=== PATIENT | male | born 1975 | race African-American/Black ===

== ENCOUNTER 2020-06-14 10:44 | Inpatient (IN) | payer OTHER ==
--- NOTE | 2020-06-14 13:42 | BHS.RME ---
Substance Use & Tx History - Substance Use History Alcohol Substance amount: 2 pints of vodka/2 of 40 ozs of beer Substance route: Oral Date of Last Use: 06/13/20 Cocaine-Crack Substance amount: 80$ Frequency of use: Daily Substance route: Smoking Date of Last Use: 06/13/20 - Last Treatment Date of last treatment: [place] Where was last treatment: Detox Physical/Psych/Mental Status - Behavior Eye Contact: Normal - Cooperativeness Cooperativeness: Cooperative - Thinking Thought Processes: Logical Thought content: Future oriented - Physical Health Problems Is patient presently having any pain?: No Does patient presently have any injuries (include location): No Does patient currently have a fever: No CIWA Nausea/Vomitin Muscle Tremors: 3 Anxiety: 3 Agitation: 3 Paroxysmal Sweats: 1-Minimal Palms Moist Orientation: 0-Oriented Tacttile Disturbances: 1-Very Mild Itch/Numbness Auditory Disturbances: 0-None Visual Disturbances: 1-Very Mild Sensitivity Headache: 2-Mild CIWA-Ar Total Score: 16
--- NOTE | 2020-06-14 13:50 | HP ---
CIWA Score Nausea/Vomitin Muscle Tremors: 3 Anxiety: 3 Agitation: 3 Paroxysmal Sweats: 1-Minimal Palms Moist Orientation: 0-Oriented Tacttile Disturbances: 1-Very Mild Itch/Numbness Auditory Disturbances: 0-None Visual Disturbances: 1-Very Mild Sensitivity Headache: 2-Mild CIWA-Ar Total Score: 16 - Admission Criteria [facility] Guidelines: Admission for Medically Managed Detox: Requires at least one of the followin. CIWA greater than 12 2. Seizures within the past 24 hours 3. Delirium tremens within the past 24 hours 4. Hallucinations within the past 24 hours 5. Acute intervention needed for co occurring medical disorder 6. Acute intervention needed for co occurring psychiatric disorder 7. Severe withdrawal that cannot be handled at a lower level of care (continued vomiting, continued diarrhea, abnormal vital signs) requiring intravenous medication and/or fluids 8. Admitting History and Physical - Admission Chief Complaint: i need help to stop drinking alcohol and crack History of Present Illness: this 44 years old male with alcohol and carck dependence seeking help to stop History Source: Patient Limitations to Obtaining History: No Limitations - Past Medical History Psych: Yes: Addictions Endocrine: Yes: Diabetes Mellitus - Past Surgical History Additional Past Surgical History: left foot sugery bunion [facility] 07/19 - Smoking History Smoking history: Current every day smoker Have you smoked in the past 12 months: Yes Aproximately how many cigarettes per day: 10 - Alcohol/Substance Use Hx Alcohol Use: Yes History of Substance Use: reports: Cocaine - Social History Usual Living Arrangement: Yes: Other (living in the snf) Do you think of yourself as: Straight/Heterosexual ADL: Support Services Occupation: unemployed History of Recent Travel: No Other Social History: living in the snf,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,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 Admission ROS [facility] - HPI Chief Complaint: i need help to stop drinking alcohol and crack Allergies/Adverse Reactions: Allergies Allergy/AdvReac Type Severity Reaction Status Date / Time No Known Allergies Allergy Verified 06/16/20 11:43 History of Present Illness: this 44 years old male with alcohol and crack dependence seeking detox,first time to this facility,last detox 10 years ago in [place], last detox 2009 in [place] denies seizure,denied syncope nicotine dependence type 2 dm non compliance no medications for 2 months living in the snf, 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,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,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 longest sobriety 3 years Exam Limitations: No Limitations - Ebola screening Have you traveled outside of the country in the last 21 days: No Have you had contact with anyone from an Ebola affected area: No Have you been sick,other than usual withdrawal symptoms: No Do you have a fever: No - Review of Systems Constitutional: Loss of Appetite, Malaise, Night Sweats, Changes in sleep EENT: reports: Nose Congestion Respiratory: reports: No Symptoms reported Cardiac: reports: No Symptoms Reported GI: reports: Nausea, Poor Appetite, Abdominal cramping : reports: No Symptoms Reported Musculoskeletal: reports: Back Pain, Muscle Pain Integumentary: reports: Dryness Neuro: reports: No Symptoms reported Endocrine: reports: No Symptoms Reported Hematology: reports: No Symptoms Reported Psychiatric: reports: No Sypmtoms Reported, Judgement Intact, Mood/Affect Appropiate, Orientated x3 Other Systems: Reviewed and Negative Patient History - Patient Medical History Hx Anemia: No Hx Asthma: No Hx Chronic Obstructive Pulmonary Disease (COPD): No Hx Cancer: No Hx Cardiac Disorders: No Hx Congestive Heart Failure: No Hx Hypertension: No Hx Hypercholesterolemia: No Hx Pacemaker: No HX Cerebrovascular Accident: No Hx Seizures: No Hx Dementia: No Hx Diabetes: No Hx Gastrointestinal Disorders: No Hx Liver Disease: No Hx Genitourinary Disorders: No Hx Sexually Transmitted Disorders: No Hx Renal Disease (ESRD): No Hx Thyroid Disease: No Hx Human Immunodeficiency Virus (HIV): No (2011 negative) Hx Hepatitis C: No Hx Depression: No Hx Suicide Attempt: No Hx Bipolar Disorder: No Hx Schizophrenia: No Other Medical History: no suicidal,no homicidal - Patient Surgical History Past Surgical History: Yes Hx Orthopedic Surgery: Yes (bunion left foot in 07/19) - PPD History Documented Results: Negative w/o proof Implanted On Prior [facility] Admission?: No PPD to be Administered?: Yes - Smoking Cessation Smoking history: Current every day smoker Have you smoked in the past 12 months: Yes Aproximately how many cigarettes per day: 10 Cigars Per Day: 0 Hx Chewing Tobacco Use: No Initiated information on smoking cessation: Yes 'Breaking Loose' booklet given: 06/14/20 - Substance & Tx. History Hx Alcohol Use: Yes Hx Substance Use: Yes Substance Use Type: Alcohol, Cocaine Hx Substance Use Treatment: Yes ([facility] in 2009) - Substances abused Alcohol Substance route: Oral Frequency: Daily Amount used: 1 pint of voka/2 of 40 osz of beer Age of first use: 9 Date of last use: 06/13/20 Crack Substance route: Smoking Frequency: Daily Amount used: 80$ Age of first use: 21 Date of last use: 06/13/20 Admission Physical Exam [facility] - Vital Signs Vital Signs: Vital Signs Temperature 98.2 F 06/14/20 15:14 Pulse Rate 79 06/14/20 15:14 Respiratory Rate 18 06/14/20 15:14 Blood Pressure 135/83 06/14/20 15:14 O2 Sat by Pulse Oximetry (%) - Physical General Appearance: Yes: Moderate Distress, Tremorous, Irritable, Sweating, Anxious HEENTM: Yes: Normal ENT Inspection, CHANDNI, Pharynx Normal Respiratory: Yes: Lungs Clear, Normal Breath Sounds, No Respiratory Distress Neck: Yes: Within Normal Limits, Supple, Trachea in good position Breast: Yes: Within Normal Limits Cardiology: Yes: Within Normal Limits, Regular Rhythm, Regular Rate, S1, S2 Abdominal: Yes: Within Normal Limits, Normal Bowel Sounds, Non Tender, Soft Genitourinary: Yes: Within Normal Limits Back: Yes: Muscle Spasm Musculoskeletal: Yes: Back pain, Muscle Pain Extremities: Yes: Normal Range of Motion, Tremors 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
[2020-06-14] MEDS ORDERED: MAGNESIUM CITRATE 300 ML BOTTLE PO PRN (14:03)
[2020-06-14] MEDS ORDERED: ACETAMINOPHEN 325 MG TABLET (FP) PO PRN ×2 (14:03)
[2020-06-14] MEDS ORDERED: BISMUTH SUBSALICYLATE 524 MG/30 ML UD PO PRN (14:03)
[2020-06-14] MEDS ORDERED: MAG HYDROX/AL HYDROX/SIMETH 30 ML UNIT-DOSE CUP PO PRN (14:03)
[2020-06-14] MEDS ORDERED: MAGNESIUM HYDROX 2400MG/30ML ORAL SUSPENSION 30 ML CUP PO PRN (14:03)
[2020-06-14] MEDS ORDERED: IBUPROFEN 400 MG TABLET (FP) PO PRN (14:03)
[2020-06-14] MEDS ORDERED: METHOCARBAMOL 500 MG TABLET PO PRN (14:03)
[2020-06-14] MEDS ORDERED: MENTHOL/PHENOL 1 EACH UD MM PRN (14:03)
[2020-06-14] MEDS ORDERED: ONDANSETRON *ODT* 4 MG TABLET SL ONE (14:03)
[2020-06-14] MEDS ORDERED: chlordiazePOXIDE HCL 25 MG CAPSULE PO PRN (14:03)
[2020-06-14] MEDS ORDERED: NICOTINE POLACRILEX 2 MG GUM BUC PRN (14:03)
[2020-06-14 15:17] VITALS: BMI 40.1
[2020-06-14] MEDS: chlordiazePOXIDE HCL 25 MG CAPSULE PO SCH ×2 (17:53→23:21)
[2020-06-14] MEDS: metFORMIN HCL 500 MG TABLET (FP) PO SCH (17:53)
[2020-06-14] MEDS: INSULIN SLIDING SCALE (NOVOLOG) 1 VIAL SQ SCH ×2 (17:54→23:00)
[2020-06-14] MEDS: hydrOXYzine PAMOATE 25 MG CAPSULE (FP) PO SCH ×2 (17:54→23:05)
[2020-06-14] MEDS: MELATONIN 5 MG TABLETS PO SCH (23:05)
[2020-06-14] MEDS: THIAMINE HCL 100 MG TABLET (FP) PO SCH (23:06)
[2020-06-15] MEDS: hydrOXYzine PAMOATE 25 MG CAPSULE (FP) PO SCH ×5 (06:30→22:15)
[2020-06-15] MEDS: metFORMIN HCL 500 MG TABLET (FP) PO SCH ×2 (06:30→17:10)
[2020-06-15] MEDS: chlordiazePOXIDE HCL 25 MG CAPSULE PO SCH (06:57)
[2020-06-15] MEDS: INSULIN SLIDING SCALE (NOVOLOG) 1 VIAL SQ SCH ×4 (08:22→22:13)
[2020-06-15 10:36] LABS: HEMATOCRIT 42.1 % (35.4-49); MCH 29.3 pg (25.7-33.7); MCHC 33.2 g/dl (32.0-35.9); MEAN CELL VOLUME 88.3 fl (80-96); MEAN PLT VOLUME 10.4 fl (7.5-11.1); PLATELET COUNT 204 K/MM3 (134-434); RBC 4.77 M/mm3 (4.00-5.60); RDW 14.1 % (11.9-15.9); WHITE BLOOD COUNT 5.4 K/mm3 (4.0-10.0)
[2020-06-15 10:49] LABS: BLOOD UREA NITROGEN 11.7 mg/dL (7-18); CALCIUM 8.8 mg/dL (8.5-10.1); POTASSIUM 4.1 mmol/L (3.5-5.1)
[2020-06-15 10:54] LABS: CREATININE 1.2 mg/dL (0.55-1.3)
[2020-06-15] MEDS: PRENATAL VITAMINS W/ FOLIC ACID TABLET (FP) PO SCH (11:09)
[2020-06-15] MEDS: NICOTINE 7 MG/24 HOURS TOPICAL PATCH TD SCH (11:09)
[2020-06-15] MEDS: chlordiazePOXIDE HCL 10 MG CAPSULE PO SCH ×3 (11:09→22:15)
--- NOTE | 2020-06-15 13:53 | PN ---
S CIWA - CIWA Score Nausea/Vomitin-Mild Nausea/No Vomiting Muscle Tremors: 4-Moderate,w/Arms Extend Anxiety: 1-Mildly Anxious Agitation: 2 Paroxysmal Sweats: No Perspiration Orientation: 0-Oriented Tacttile Disturbances: 1-Very Mild Itch/Numbness Auditory Disturbances: 0-None Visual Disturbances: 2-Mild Sensitivity Headache: 1-Very Mild CIWA-Ar Total Score: 12 [facility] Progress Note (SOAP) Subjective: 44 years old obese male admitted on 06/14/20 for alcohol withdrawal sx management treating with librium detox regiment ate breakfast in room resting in bed limited conversation with staff prefers to stay in bed today Objective: 06/15/20 13:49 Vital Signs - 24 hr 06/14/20 06/14/20 06/14/20 15:14 16:17 20:46 Temperature 98.2 F 97.3 F L 97.1 F L Pulse Rate 79 68 80 Respiratory 18 18 18 Rate Blood Pressure 135/83 150/94 148/90 O2 Sat by Pulse 97 Oximetry (%) 06/15/20 06/15/20 06/15/20 07:24 08:24 12:47 Temperature 97.5 F L 96.9 F L 98.8 F Pulse Rate 63 75 86 Respiratory 18 20 20 Rate Blood Pressure 119/73 141/96 142/92 O2 Sat by Pulse 98 100 Oximetry (%) Laboratory Tests 06/14/20 06/14/20 06/15/20 17:04 21:04 08:00 WBC RBC Hgb Hct MCV MCH MCHC RDW Plt Count MPV Sodium Potassium Chloride Carbon Dioxide Anion Gap BUN Creatinine Est GFR (CKD-EPI)AfAm Est GFR (CKD-EPI)NonAf POC Glucometer 535 509 Random Glucose Calcium Total Bilirubin AST ALT Alkaline Phosphatase Total Protein Albumin Syphilis Serology Non-reactive 06/15/20 06/15/20 06/15/20 08:00 08:00 11:41 WBC 5.4 RBC 4.77 Hgb 14.0 Hct 42.1 MCV 88.3 MCH 29.3 MCHC 33.2 RDW 14.1 Plt Count 204 MPV 10.4 Sodium 137 Potassium 4.1 Chloride 101 Carbon Dioxide 27 Anion Gap 9 BUN 11.7 Creatinine 1.2 Est GFR (CKD-EPI)AfAm 84.73 Est GFR (CKD-EPI)NonAf 73.10 POC Glucometer 584 Random Glucose 309 H Calcium 8.8 Total Bilirubin 1.0 AST 17 ALT 27 Alkaline Phosphatase 87 Total Protein 7.0 Albumin 3.0 L Syphilis Serology uncontrolled type II diabetes treated with metformin 1000 mg po bid with sliding scale 06/15/20 13:53 Assessment: 06/15/20 13:54 alcohol withdrawal 06/15/20 13:55 uncontrolled type II diabetes obesity Plan: librium regiment insulin sliding scale + metformin 1000mg po bidac
--- NOTE | 2020-06-15 14:02 | PN ---
[facility] CIWA - CIWA Score Nausea/Vomitin-Mild Nausea/No Vomiting Muscle Tremors: 2 Anxiety: 2 Agitation: 2 Paroxysmal Sweats: 1-Minimal Palms Moist Orientation: 0-Oriented Tacttile Disturbances: 0-None Auditory Disturbances: 0-None Visual Disturbances: 0-None Headache: 0-None Present CIWA-Ar Total Score: 8 [facility] COWS - Scale Resting Pulse: 1= NE 81-100 Sweatin= No chills or Flushing Restless Observation: 0= Sits Still Pupil Size: 1= Pupils >than Normal Bone or Joint Aches: 0= None Runny Nose/ Eye Tearin= None GI Upset > 30mins: 2= Nausea/Diarrhea Tremor Observation of Outstretched Hands: 2= Slight Tremor Visible Yawning Observation: 0= None Anxiety or Irritability: 2=Irritable/Anxious Goose Flesh Skin: 0=Smooth Skin COWS Score: 8 [facility] Progress Note (SOAP) Subjective: 44 years old
--- NOTE | 2020-06-15 18:54 | EKG ---
Test Reason : Blood Pressure : / mmHG Vent. Rate : 062 BPM Atrial Rate : 062 BPM P-R Int : 188 ms QRS Dur : 086 ms QT Int : 390 ms P-R-T Axes : -03 048 015 degrees QTc Int : 395 [address]AL SINUS RHYTHM ST ELEVATION, CONSIDER EARLY REPOLARIZATION BORDERLINE ECG NO PREVIOUS ECGS AVAILABLE Confirmed by MD SALLY, ANDREI ([id number]) on 06/15/2020 6:54:27 PM Referred By: Confirmed By:ANDREI ZAVALA MD
[2020-06-15] MEDS: THIAMINE HCL 100 MG TABLET (FP) PO SCH (22:14)
[2020-06-15] MEDS: MELATONIN 5 MG TABLETS PO SCH (22:15)
[2020-06-16] MEDS: hydrOXYzine PAMOATE 25 MG CAPSULE (FP) PO SCH ×5 (06:05→22:07)
[2020-06-16] MEDS: metFORMIN HCL 500 MG TABLET (FP) PO SCH ×2 (06:05→17:44)
[2020-06-16] MEDS: chlordiazePOXIDE HCL 25 MG CAPSULE PO SCH ×4 (06:05→22:08)
[2020-06-16] MEDS: INSULIN SLIDING SCALE (NOVOLOG) 1 VIAL SQ SCH ×4 (06:08→22:08)
[2020-06-16] MEDS ORDERED: INSULIN SLIDING SCALE (NOVOLOG) 1 VIAL SQ ONE (06:09)
[2020-06-16] MEDS: PRENATAL VITAMINS W/ FOLIC ACID TABLET (FP) PO SCH (10:21)
[2020-06-16] MEDS: NICOTINE 7 MG/24 HOURS TOPICAL PATCH TD SCH (11:06)
--- NOTE | 2020-06-16 12:22 | PN ---
S CIWA - CIWA Score Nausea/Vomitin-Mild Nausea/No Vomiting Muscle Tremors: 2 Anxiety: 2 Agitation: 0-Normal Activity Paroxysmal Sweats: 1-Minimal Palms Moist Orientation: 0-Oriented Tacttile Disturbances: 0-None Auditory Disturbances: 0-None Visual Disturbances: 2-Mild Sensitivity Headache: 1-Very Mild CIWA-Ar Total Score: 9 S Progress Note (SOAP) Subjective: 44 years old male was admitted on 06/14/20 for alcohol withdrawal sx management treating with librium detox regiment long history of insulin dependent diabetes discussing weight loss and finger stick with insulin coverage Objective: 06/16/20 12:26 Vital Signs - 24 hr 06/15/20 06/15/20 06/15/20 12:47 16:25 20:46 Temperature 98.8 F 97.3 F L 97.7 F Pulse Rate 86 95 H 90 Respiratory 20 18 18 Rate Blood Pressure 142/92 134/89 113/73 O2 Sat by Pulse 100 97 Oximetry (%) 06/16/20 06/16/20 06:53 08:47 Temperature 98.1 F 97.3 F L Pulse Rate 64 75 Respiratory 16 18 Rate Blood Pressure 150/95 130/81 O2 Sat by Pulse 100 Oximetry (%) Laboratory Tests 06/14/20 06/14/20 06/14/20 15:35 17:04 21:04 WBC RBC Hgb Hct MCV MCH MCHC RDW Plt Count MPV Sodium Potassium Chloride Carbon Dioxide Anion Gap BUN Creatinine Est GFR (CKD-EPI)AfAm Est GFR (CKD-EPI)NonAf POC Glucometer 535 509 Random Glucose Calcium Total Bilirubin AST ALT Alkaline Phosphatase Total Protein Albumin Syphilis Serology COVID-19 (SG) Not detected 06/15/20 06/15/20 06/15/20 08:00 08:00 08:00 WBC 5.4 RBC 4.77 Hgb 14.0 Hct 42.1 MCV 88.3 MCH 29.3 MCHC 33.2 RDW 14.1 Plt Count 204 MPV 10.4 Sodium 137 Potassium 4.1 Chloride 101 Carbon Dioxide 27 Anion Gap 9 BUN 11.7 Creatinine 1.2 Est GFR (CKD-EPI)AfAm 84.73 Est GFR (CKD-EPI)NonAf 73.10 POC Glucometer Random Glucose 309 H Calcium 8.8 Total Bilirubin 1.0 AST 17 ALT 27 Alkaline Phosphatase 87 Total Protein 7.0 Albumin 3.0 L Syphilis Serology Non-reactive COVID-19 (SG) 06/15/20 06/15/20 06/15/20 11:41 16:44 21:06 WBC RBC Hgb Hct MCV MCH MCHC RDW Plt Count MPV Sodium Potassium Chloride Carbon Dioxide Anion Gap BUN Creatinine Est GFR (CKD-EPI)AfAm Est GFR (CKD-EPI)NonAf POC Glucometer [phone] Random Glucose Calcium Total Bilirubin AST ALT Alkaline Phosphatase Total Protein Albumin Syphilis Serology COVID-19 (SG) 06/16/20 06/16/20 06:07 11:29 WBC RBC Hgb Hct MCV MCH MCHC RDW Plt Count MPV Sodium Potassium Chloride Carbon Dioxide Anion Gap BUN Creatinine Est GFR (CKD-EPI)AfAm Est GFR (CKD-EPI)NonAf POC Glucometer 378 381 Random Glucose Calcium Total Bilirubin AST ALT Alkaline Phosphatase Total Protein Albumin Syphilis Serology COVID-19 (SG) lab noted Assessment: 06/16/20 12:26 alcohol withdrawal Plan: librium regiment
[2020-06-16] MEDS: THIAMINE HCL 100 MG TABLET (FP) PO SCH (22:07)
[2020-06-16] MEDS: MELATONIN 5 MG TABLETS PO SCH (22:07)
[2020-06-17] MEDS ORDERED: chlordiazePOXIDE HCL 10 MG CAPSULE PO PRN
[2020-06-17] MEDS: hydrOXYzine PAMOATE 25 MG CAPSULE (FP) PO SCH ×5 (05:58→22:52)
[2020-06-17] MEDS: chlordiazePOXIDE HCL 10 MG CAPSULE PO SCH ×4 (05:59→22:52)
[2020-06-17] MEDS ORDERED: INSULIN SLIDING SCALE (NOVOLOG) 1 VIAL SQ ONE ×2 (06:04→11:17)
[2020-06-17] MEDS: metFORMIN HCL 500 MG TABLET (FP) PO SCH ×2 (06:11→17:21)
[2020-06-17] MEDS: INSULIN SLIDING SCALE (NOVOLOG) 1 VIAL SQ SCH ×4 (07:32→22:57)
[2020-06-17] MEDS: PRENATAL VITAMINS W/ FOLIC ACID TABLET (FP) PO SCH (10:23)
[2020-06-17] MEDS: NICOTINE 7 MG/24 HOURS TOPICAL PATCH TD SCH (10:35)
--- NOTE | 2020-06-17 15:29 | PN ---
S CIWA - CIWA Score Nausea/Vomitin-No Nausea/No Vomiting Muscle Tremors: 3 Anxiety: 2 Agitation: 1-Slight > Activity Paroxysmal Sweats: No Perspiration Orientation: 0-Oriented Tacttile Disturbances: 0-None Auditory Disturbances: 0-None Visual Disturbances: 0-None Headache: 0-None Present CIWA-Ar Total Score: 6 S COWS - Scale Resting Pulse: 0= [place] 80 or Below Sweatin= Chills/Flushing Restless Observation: 0= Sits Still Pupil Size: 1= Pupils >than Normal Bone or Joint Aches: 0= None Runny Nose/ Eye Tearin= None GI Upset > 30mins: 1= Stomach Cramp Tremor Observation of Outstretched Hands: 2= Slight Tremor Visible Yawning Observation: 0= None Anxiety or Irritability: 1=Feels Anxious/Irritable Goose Flesh Skin: 0=Smooth Skin COWS Score: 6 S Progress Note (SOAP) Subjective: 44 years old male was admitted on 06/14/20 for alcohol withdrawal sx management treating with librium detox regiment Laboratory Tests 06/14/20 06/14/20 06/14/20 15:35 17:04 21:04 WBC RBC Hgb Hct MCV MCH MCHC RDW Plt Count MPV Sodium Potassium Chloride Carbon Dioxide Anion Gap BUN Creatinine Est GFR (CKD-EPI)AfAm Est GFR (CKD-EPI)NonAf POC Glucometer 535 509 Random Glucose Calcium Total Bilirubin AST ALT Alkaline Phosphatase Total Protein Albumin Syphilis Serology COVID-19 (SG) Not detected 06/15/20 06/15/20 06/15/20 08:00 08:00 08:00 WBC 5.4 RBC 4.77 Hgb 14.0 Hct 42.1 MCV 88.3 MCH 29.3 MCHC 33.2 RDW 14.1 Plt Count 204 MPV 10.4 Sodium 137 Potassium 4.1 Chloride 101 Carbon Dioxide 27 Anion Gap 9 BUN 11.7 Creatinine 1.2 Est GFR (CKD-EPI)AfAm 84.73 Est GFR (CKD-EPI)NonAf 73.10 POC Glucometer Random Glucose 309 H Calcium 8.8 Total Bilirubin 1.0 AST 17 ALT 27 Alkaline Phosphatase 87 Total Protein 7.0 Albumin 3.0 L Syphilis Serology Non-reactive COVID-19 (SG) 06/15/20 06/15/20 06/15/20 11:41 16:44 21:06 WBC RBC Hgb Hct MCV MCH MCHC RDW Plt Count MPV Sodium Potassium Chloride Carbon Dioxide Anion Gap BUN Creatinine Est GFR (CKD-EPI)AfAm Est GFR (CKD-EPI)NonAf POC Glucometer [phone] Random Glucose Calcium Total Bilirubin AST ALT Alkaline Phosphatase Total Protein Albumin Syphilis Serology COVID-19 (SG) 06/16/20 06/16/20 06/16/20 06:07 11:29 16:30 WBC RBC Hgb Hct MCV MCH MCHC RDW Plt Count MPV Sodium Potassium Chloride Carbon Dioxide Anion Gap BUN Creatinine Est GFR (CKD-EPI)AfAm Est GFR (CKD-EPI)NonAf POC Glucometer [phone] Random Glucose Calcium Total Bilirubin AST ALT Alkaline Phosphatase Total Protein Albumin Syphilis Serology COVID-19 (SG) 06/16/20 06/17/20 06/17/20 21:03 05:59 11:11 WBC RBC Hgb Hct MCV MCH MCHC RDW Plt Count MPV Sodium Potassium Chloride Carbon Dioxide Anion Gap BUN Creatinine Est GFR (CKD-EPI)AfAm Est GFR (CKD-EPI)NonAf POC Glucometer [phone] Random Glucose Calcium Total Bilirubin AST ALT Alkaline Phosphatase Total Protein Albumin Syphilis Serology COVID-19 (SG) glucose elevation encourage weight loss insulin dependent diabetes uncontrolled Objective: 06/17/20 15:31 Vital Signs - 24 hr 06/16/20 06/16/20 06/17/20 17:03 20:50 06:22 Temperature 98.2 F 98.4 F 97.9 F Pulse Rate 93 H 92 H 65 Respiratory 18 18 18 Rate Blood Pressure 135/87 121/77 150/98 O2 Sat by Pulse 98 98 Oximetry (%) 06/17/20 06/17/20 08:39 12:59 Temperature 99.3 F 96.8 F L Pulse Rate 79 79 Respiratory 16 18 Rate Blood Pressure 104/61 118/72 O2 Sat by Pulse 98 96 Oximetry (%) Laboratory Tests 06/14/20 06/14/20 06/14/20 15:35 17:04 21:04 WBC RBC Hgb Hct MCV MCH MCHC RDW Plt Count MPV Sodium Potassium Chloride Carbon Dioxide Anion Gap BUN Creatinine Est GFR (CKD-EPI)AfAm Est GFR (CKD-EPI)NonAf POC Glucometer 535 509 Random Glucose Calcium Total Bilirubin AST ALT Alkaline Phosphatase Total Protein Albumin Syphilis Serology COVID-19 (SG) Not detected 06/15/20 06/15/20 06/15/20 08:00 08:00 08:00 WBC 5.4 RBC 4.77 Hgb 14.0 Hct 42.1 MCV 88.3 MCH 29.3 MCHC 33.2 RDW 14.1 Plt Count 204 MPV 10.4 Sodium 137 Potassium 4.1 Chloride 101 Carbon Dioxide 27 Anion Gap 9 BUN 11.7 Creatinine 1.2 Est GFR (CKD-EPI)AfAm 84.73 Est GFR (CKD-EPI)NonAf 73.10 POC Glucometer Random Glucose 309 H Calcium 8.8 Total Bilirubin 1.0 AST 17 ALT 27 Alkaline Phosphatase 87 Total Protein 7.0 Albumin 3.0 L Syphilis Serology Non-reactive COVID-19 (SG) 06/15/20 06/15/20 06/15/20 11:41 16:44 21:06 WBC RBC Hgb Hct MCV MCH MCHC RDW Plt Count MPV Sodium Potassium Chloride Carbon Dioxide Anion Gap BUN Creatinine Est GFR (CKD-EPI)AfAm Est GFR (CKD-EPI)NonAf POC Glucometer [phone] Random Glucose Calcium Total Bilirubin AST ALT Alkaline Phosphatase Total Protein Albumin Syphilis Serology COVID-19 (SG) 06/16/20 06/16/20 06/16/20 06:07 11:29 16:30 WBC RBC Hgb Hct MCV MCH MCHC RDW Plt Count MPV Sodium Potassium Chloride Carbon Dioxide Anion Gap BUN Creatinine Est GFR (CKD-EPI)AfAm Est GFR (CKD-EPI)NonAf POC Glucometer 378 381 355 Random Glucose Calcium Total Bilirubin AST ALT Alkaline Phosphatase Total Protein Albumin Syphilis Serology COVID-19 (SG) 06/16/20 06/17/20 06/17/20 21:03 05:59 11:11 WBC RBC Hgb Hct MCV MCH MCHC RDW Plt Count MPV Sodium Potassium Chloride Carbon Dioxide Anion Gap BUN Creatinine Est GFR (CKD-EPI)AfAm Est GFR (CKD-EPI)NonAf POC Glucometer [phone] Random Glucose Calcium Total Bilirubin AST ALT Alkaline Phosphatase Total Protein Albumin Syphilis Serology COVID-19 (SG) Assessment: 06/17/20 15:31 alcohol withdrawal Plan: librium regiment
[2020-06-17] MEDS: THIAMINE HCL 100 MG TABLET (FP) PO SCH (22:52)
[2020-06-17] MEDS: MELATONIN 5 MG TABLETS PO SCH (22:52)
[2020-06-18] MEDS: chlordiazePOXIDE HCL 10 MG CAPSULE PO SCH ×2 (05:59→18:00)
[2020-06-18] MEDS: hydrOXYzine PAMOATE 25 MG CAPSULE (FP) PO SCH ×5 (05:59→22:05)
[2020-06-18] MEDS: metFORMIN HCL 500 MG TABLET (FP) PO SCH ×2 (06:06→18:00)
[2020-06-18] MEDS: INSULIN SLIDING SCALE (NOVOLOG) 1 VIAL SQ SCH ×4 (06:19→22:05)
[2020-06-18] MEDS ORDERED: INSULIN SLIDING SCALE (NOVOLOG) 1 VIAL SQ ONE (06:20)
[2020-06-18] MEDS: NICOTINE 7 MG/24 HOURS TOPICAL PATCH TD SCH (09:39)
[2020-06-18] MEDS: PRENATAL VITAMINS W/ FOLIC ACID TABLET (FP) PO SCH (09:39)
--- NOTE | 2020-06-18 11:58 | PN ---
S CIWA - CIWA Score Nausea/Vomitin-No Nausea/No Vomiting Muscle Tremors: 1-None Visible, but [place] Anxiety: 1-Mildly Anxious Agitation: 1-Slight > Activity Paroxysmal Sweats: 1-Minimal Palms Moist Orientation: 0-Oriented Tacttile Disturbances: 0-None Auditory Disturbances: 0-None Visual Disturbances: 0-None Headache: 1-Very Mild CIWA-Ar Total Score: 5 [facility] Progress Note (SOAP) Subjective: 44 years old obese male was admitted on 06/14/20 for alcohol withdrawal sx management treating with librium detox regiment feels better today discussing aftercare with staff mr millan prefers [facility] for alcohol recovery mr millan requests to be 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 weight loss Objective: 06/18/20 12:01 Vital Signs - 24 hr 06/17/20 06/17/20 06/17/20 12:59 16:49 20:40 Temperature 96.8 F L 97.1 F L 97.3 F L Pulse Rate 79 83 96 H Respiratory 18 20 18 Rate Blood Pressure 118/72 129/86 143/92 O2 Sat by Pulse 96 96 98 Oximetry (%) 06/18/20 06/18/20 05:54 08:28 Temperature 97.3 F L 98.2 F Pulse Rate 68 85 Respiratory 20 18 Rate Blood Pressure 131/73 127/84 O2 Sat by Pulse 100 Oximetry (%) Laboratory Tests 06/14/20 06/14/20 06/14/20 15:35 17:04 21:04 WBC RBC Hgb Hct MCV MCH MCHC RDW Plt Count MPV Sodium Potassium Chloride Carbon Dioxide Anion Gap BUN Creatinine Est GFR (CKD-EPI)AfAm Est GFR (CKD-EPI)NonAf POC Glucometer 535 509 Random Glucose Calcium Total Bilirubin AST ALT Alkaline Phosphatase Total Protein Albumin Syphilis Serology COVID-19 (SG) Not detected 06/15/20 06/15/20 06/15/20 08:00 08:00 08:00 WBC 5.4 RBC 4.77 Hgb 14.0 Hct 42.1 MCV 88.3 MCH 29.3 MCHC 33.2 RDW 14.1 Plt Count 204 MPV 10.4 Sodium 137 Potassium 4.1 Chloride 101 Carbon Dioxide 27 Anion Gap 9 BUN 11.7 Creatinine 1.2 Est GFR (CKD-EPI)AfAm 84.73 Est GFR (CKD-EPI)NonAf 73.10 POC Glucometer Random Glucose 309 H Calcium 8.8 Total Bilirubin 1.0 AST 17 ALT 27 Alkaline Phosphatase 87 Total Protein 7.0 Albumin 3.0 L Syphilis Serology Non-reactive COVID-19 (SG) 06/15/20 06/15/20 06/15/20 11:41 16:44 21:06 WBC RBC Hgb Hct MCV MCH MCHC RDW Plt Count MPV Sodium Potassium Chloride Carbon Dioxide Anion Gap BUN Creatinine Est GFR (CKD-EPI)AfAm Est GFR (CKD-EPI)NonAf POC Glucometer [phone] Random Glucose Calcium Total Bilirubin AST ALT Alkaline Phosphatase Total Protein Albumin Syphilis Serology COVID-19 (SG) 06/16/20 06/16/20 06/16/20 06:07 11:29 16:30 WBC RBC Hgb Hct MCV MCH MCHC RDW Plt Count MPV Sodium Potassium Chloride Carbon Dioxide Anion Gap BUN Creatinine Est GFR (CKD-EPI)AfAm Est GFR (CKD-EPI)NonAf POC Glucometer 378 381 355 Random Glucose Calcium Total Bilirubin AST ALT Alkaline Phosphatase Total Protein Albumin Syphilis Serology COVID-19 (SG) 06/16/20 06/17/20 06/17/20 21:03 05:59 11:11 WBC RBC Hgb Hct MCV MCH MCHC RDW Plt Count MPV Sodium Potassium Chloride Carbon Dioxide Anion Gap BUN Creatinine Est GFR (CKD-EPI)AfAm Est GFR (CKD-EPI)NonAf POC Glucometer [phone] Random Glucose Calcium Total Bilirubin AST ALT Alkaline Phosphatase Total Protein Albumin Syphilis Serology COVID-19 (SG) 06/17/20 06/17/20 06/18/20 17:09 21:28 06:01 WBC RBC Hgb Hct MCV MCH MCHC RDW Plt Count MPV Sodium Potassium Chloride Carbon Dioxide Anion Gap BUN Creatinine Est GFR (CKD-EPI)AfAm Est GFR (CKD-EPI)NonAf POC Glucometer [phone] Random Glucose Calcium Total Bilirubin AST ALT Alkaline Phosphatase Total Protein Albumin Syphilis Serology COVID-19 (SG) 06/18/20 11:42 WBC RBC Hgb Hct MCV MCH MCHC RDW Plt Count MPV Sodium Potassium Chloride Carbon Dioxide Anion Gap BUN Creatinine Est GFR (CKD-EPI)AfAm Est GFR (CKD-EPI)NonAf POC Glucometer 347 Random Glucose Calcium Total Bilirubin AST ALT Alkaline Phosphatase Total Protein Albumin Syphilis Serology COVID-19 (SG) medical history of insulin dependent diabetes II health teaching on risks of hyperglycemia Assessment: 06/18/20 12:03 alcohol withdrawal Plan: librium regiment
[2020-06-18] MEDS: THIAMINE HCL 100 MG TABLET (FP) PO SCH (22:05)
[2020-06-18] MEDS: MELATONIN 5 MG TABLETS PO SCH (22:05)
[2020-06-19] MEDS ORDERED: chlordiazePOXIDE HCL 10 MG CAPSULE PO ONE (05:00)
[2020-06-19] MEDS: metFORMIN HCL 500 MG TABLET (FP) PO SCH (06:35)
[2020-06-19] MEDS: hydrOXYzine PAMOATE 25 MG CAPSULE (FP) PO SCH ×2 (06:35→09:42)
[2020-06-19] MEDS ORDERED: INSULIN SLIDING SCALE (NOVOLOG) 1 VIAL SQ ONE (07:05)
[2020-06-19] MEDS: INSULIN SLIDING SCALE (NOVOLOG) 1 VIAL SQ SCH (07:37)
[2020-06-19 09:14] VITALS: BP 132/87; PULSE 90; TEMP 98.6
[2020-06-19] MEDS: NICOTINE 7 MG/24 HOURS TOPICAL PATCH TD SCH (09:42)
[2020-06-19] MEDS: PRENATAL VITAMINS W/ FOLIC ACID TABLET (FP) PO SCH (09:42)
--- NOTE | 2020-06-19 11:03 | DS ---
[facility] Detox Discharge Summary Admission Date: 06/14/20 Discharge Date: 06/19/20 - History Present History: Alcohol Dependence Additional Comments: 44 years old male was admitted on 06/14/20 for alcohol withdrawal sx management treated with librium detox regiment mr millan has completed librium regiment and is tolerated well General Appearance: Yes: no Distress, mild Tremorous, not Irritable, no Sweating, mild Anxious HEENTM: Yes: Normal ENT Inspection, CHANDNI, Pharynx Normal Respiratory: Yes: Lungs Clear, Normal Breath Sounds, No Respiratory Distress Neck: Yes: Within Normal Limits, Supple, Trachea in good position Breast: Yes: Within Normal Limits Cardiology: Yes: Within Normal Limits, Regular Rhythm, Regular Rate, S1, S2 Abdominal: Yes: Within Normal Limits, Normal Bowel Sounds, Non Tender, Soft Genitourinary: Yes: Within Normal Limits Back: Yes: mild Muscle Spasm Musculoskeletal: Yes: chronic Back pain, mild Muscle Pain Extremities: Yes: Normal Range of Motion, Tremors 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 intact, Fully Oriented, Motor Strength 5/5 Integumentary: Yes: Dry Lymphatic: Yes: Within Normal Limits Pertinent Past History: time for discharge 33 minutes - Physical Exam Results Vital Signs: Vital Signs Temperature 98.6 F 06/19/20 08:29 Pulse Rate 90 06/19/20 08:29 Respiratory Rate 18 06/19/20 08:29 Blood Pressure 132/87 06/19/20 08:29 O2 Sat by Pulse Oximetry (%) 97 06/19/20 06:47 Pertinent Admission Physical Exam Findings: alcohol withdrawal Laboratory Tests 06/14/20 06/14/20 06/14/20 15:35 17:04 21:04 WBC RBC Hgb Hct MCV MCH MCHC RDW Plt Count MPV Sodium Potassium Chloride Carbon Dioxide Anion Gap BUN Creatinine Est GFR (CKD-EPI)AfAm Est GFR (CKD-EPI)NonAf POC Glucometer [phone] Random Glucose Hemoglobin A1c % Calcium Total Bilirubin AST ALT Alkaline Phosphatase Total Protein Albumin Syphilis Serology COVID-19 (SG) Not detected 06/15/20 06/15/20 06/15/20 08:00 08:00 08:00 WBC 5.4 RBC 4.77 Hgb 14.0 Hct 42.1 MCV 88.3 MCH 29.3 MCHC 33.2 RDW 14.1 Plt Count 204 MPV 10.4 Sodium 137 Potassium 4.1 Chloride 101 Carbon Dioxide 27 Anion Gap 9 BUN 11.7 Creatinine 1.2 Est GFR (CKD-EPI)AfAm 84.73 Est GFR (CKD-EPI)NonAf 73.10 POC Glucometer Random Glucose 309 H Hemoglobin A1c % Calcium 8.8 Total Bilirubin 1.0 AST 17 ALT 27 Alkaline Phosphatase 87 Total Protein 7.0 Albumin 3.0 L Syphilis Serology Non-reactive COVID-19 (SG) 06/15/20 06/15/20 06/15/20 11:41 16:44 21:06 WBC RBC Hgb Hct MCV MCH MCHC RDW Plt Count MPV Sodium Potassium Chloride Carbon Dioxide Anion Gap BUN Creatinine Est GFR (CKD-EPI)AfAm Est GFR (CKD-EPI)NonAf POC Glucometer [phone] Random Glucose Hemoglobin A1c % Calcium Total Bilirubin AST ALT Alkaline Phosphatase Total Protein Albumin Syphilis Serology COVID-19 (SG) 06/16/20 06/16/20 06/16/20 06:07 11:29 16:30 WBC RBC Hgb Hct MCV MCH MCHC RDW Plt Count MPV Sodium Potassium Chloride Carbon Dioxide Anion Gap BUN Creatinine Est GFR (CKD-EPI)AfAm Est GFR (CKD-EPI)NonAf POC Glucometer [phone] Random Glucose Hemoglobin A1c % Calcium Total Bilirubin AST ALT Alkaline Phosphatase Total Protein Albumin Syphilis Serology COVID-19 (SG) 06/16/20 06/17/20 06/17/20 21:03 05:59 11:11 WBC RBC Hgb Hct MCV MCH MCHC RDW Plt Count MPV Sodium Potassium Chloride Carbon Dioxide Anion Gap BUN Creatinine Est GFR (CKD-EPI)AfAm Est GFR (CKD-EPI)NonAf POC Glucometer [phone] Random Glucose Hemoglobin A1c % Calcium Total Bilirubin AST ALT Alkaline Phosphatase Total Protein Albumin Syphilis Serology COVID-19 (SG) 06/17/20 06/17/20 06/18/20 17:09 21:28 06:01 WBC RBC Hgb Hct MCV MCH MCHC RDW Plt Count MPV Sodium Potassium Chloride Carbon Dioxide Anion Gap BUN Creatinine Est GFR (CKD-EPI)AfAm Est GFR (CKD-EPI)NonAf POC Glucometer [phone] Random Glucose Hemoglobin A1c % Calcium Total Bilirubin AST ALT Alkaline Phosphatase Total Protein Albumin Syphilis Serology COVID-19 (SG) 06/18/20 06/18/20 06/18/20 08:30 11:42 16:50 WBC RBC Hgb Hct MCV MCH MCHC RDW Plt Count MPV Sodium Potassium Chloride Carbon Dioxide Anion Gap BUN Creatinine Est GFR (CKD-EPI)AfAm Est GFR (CKD-EPI)NonAf POC Glucometer 347 332 Random Glucose Hemoglobin A1c % 13.4 H Calcium Total Bilirubin AST ALT Alkaline Phosphatase Total Protein Albumin Syphilis Serology COVID-19 (SG) 06/18/20 21:07 WBC RBC Hgb Hct MCV MCH MCHC RDW Plt Count MPV Sodium Potassium Chloride Carbon Dioxide Anion Gap BUN Creatinine Est GFR (CKD-EPI)AfAm Est GFR (CKD-EPI)NonAf POC Glucometer 437 Random Glucose Hemoglobin A1c % Calcium Total Bilirubin AST ALT Alkaline Phosphatase Total Protein Albumin Syphilis Serology COVID-19 (SG) insulin dependent diabetes II obese - Treatment Hospital Course: Detox Protocol Followed, Detoxed Safely, Responded well, Discharged Condition Good, Rehab Referral Accepted Patient has Accepted a Rehab Referral to: [facility] - Medication Discharge Medications: Ambulatory Orders Metformin HCl [Glucophage] 1,000 mg PO BID 06/14/20 - Diagnosis (1) Alcohol dependence with uncomplicated withdrawal Status: Acute (2) DM2 (diabetes mellitus, type 2) Status: Chronic Qualifiers: Diabetes mellitus lobsterman insulin use: with residential use Diabetes mellitus complication status: without complication Qualified Code(s): E11.9 - Type 2 diabetes mellitus without complications; Z79.4 - oil heaterman (current) use of insulin (3) Nicotine dependence Status: Acute Qualifiers: Nicotine product type: cigarettes Substance use status: in withdrawal Qualified Code(s): F17.213 - Nicotine dependence, cigarettes, with withdrawal (4) Substance induced mood disorder Status: Suspected - AMA Did Patient Leave Against Medical Advice: No CIWA Score - CIWA Score Nausea/Vomitin-Mild Nausea/No Vomiting Muscle Tremors: 2 Anxiety: 2 Agitation: 2 Paroxysmal Sweats: No Perspiration Orientation: 0-Oriented Tacttile Disturbances: 0-None Auditory Disturbances: 0-None Visual Disturbances: 1-Very Mild Sensitivity Headache: 1-Very Mild CIWA-Ar Total Score: 9
== END 2020-06-19 09:15 | disposition home or self-care (01) | DRG 774 ==
LOC: YASAS 10:44 → Y3N 15:31
PROVIDERS: ADMIT Allergy & Immunology; ATTEND Allergy & Immunology
PROC: HZ2ZZZZ Detoxification Services for Substance Abuse Treatment (ICD-10-PCS; principal; 2020-06-14)
DX: F10.230 Alcohol dependence with withdrawal, uncomplicated (principal); F14.20 Cocaine dependence, uncomplicated; F17.213 Nicotine dependence, cigarettes, with withdrawal; F19.24 Other psychoactive substance dependence with psychoactive substance-induced mood disorder; E11.65 Type 2 diabetes mellitus with hyperglycemia; Z79.4 Long term (current) use of insulin; E66.01 Morbid (severe) obesity due to excess calories; Z68.41 Body mass index [BMI] 40.0-44.9, adult; Z91.14 Patient's other noncompliance with medication regimen; Z59.0 Homelessness
CPT/HCPCS: 36415; 80053; 82962; 83036; 85027; 86780; 93005; 93010; U0003

== ENCOUNTER 2023-06-16 21:52 | Inpatient (IN) | payer OTHER ==
[2023-06-16 12:59] VITALS: BMI 40.0
[2023-06-16] MEDS ORDERED: ONDANSETRON *ODT* 4 MG TABLET SL PRN (22:33)
[2023-06-16] MEDS ORDERED: BENZONATATE 200 MG CAPSULE PO PRN (22:33)
[2023-06-16] MEDS ORDERED: POLYETHYLENE GLYCOL (HEALTHYLAX) 3350 17 GM PACKET PO PRN (22:33)
[2023-06-16] MEDS ORDERED: MAGNESIUM HYDROX 2400MG/30ML ORAL SUSPENSION 30 ML CUP PO PRN (22:33)
[2023-06-16] MEDS ORDERED: P-EPHED 60MG/TRIPROLIDI 2.5MG TABLET PO PRN (22:33)
[2023-06-16] MEDS ORDERED: MAG HYDROX/AL HYDROX/SIMETH 30 ML UNIT-DOSE CUP PO PRN (22:33)
[2023-06-16] MEDS ORDERED: METHOCARBAMOL 500 MG TABLET PO PRN (22:33)
[2023-06-16] MEDS ORDERED: guaiFENesin 600 MG TABLET.ER (FP) PO PRN (22:33)
[2023-06-16] MEDS ORDERED: BENZOCAINE/MENTHOL (CHLORASEPTIC ) LOZENGE MM PRN (22:33)
[2023-06-16] MEDS ORDERED: ACETAMINOPHEN 325 MG TABLET (FP) PO PRN (22:33)
[2023-06-16] MEDS ORDERED: LOPERAMIDE HCL 2 MG CAPSULE PO PRN (22:33)
[2023-06-16] MEDS ORDERED: DICYCLOMINE HCL 10 MG CAPSULE PO PRN (22:33)
[2023-06-16] MEDS ORDERED: NICOTINE POLACRILEX 2 MG GUM BUC PRN (22:33)
[2023-06-16] MEDS: INSULIN SLIDING SCALE (NOVOLOG) 1 VIAL SQ SCH (23:58)
[2023-06-17] MEDS: INSULIN SLIDING SCALE (NOVOLOG) 1 VIAL SQ SCH ×4 (06:41→22:02)
[2023-06-17] MEDS: metFORMIN HCL 500 MG TABLET (FP) PO SCH ×2 (06:41→17:40)
[2023-06-17] MEDS ORDERED: INSULIN SLIDING SCALE (NOVOLOG) 1 VIAL SQ ONE (07:35)
[2023-06-17] MEDS: APIXABAN 5 MG TABLET PO SCH ×2 (10:39→22:05)
[2023-06-17] MEDS: PRENATAL VITAMINS W/ FOLIC ACID TABLET (FP) PO SCH (10:39)
[2023-06-17 15:22] LABS: POTASSIUM 4.5 mmol/L (3.5-5.1)
[2023-06-17 15:24] LABS: HEMATOCRIT 36.3 % (35.4-49); HEMOGLOBIN 12.3 GM/dL (11.7-16.9); MCH 29.5 pg (25.7-33.7); MCHC 33.8 g/dl (32.0-35.9); MEAN CELL VOLUME 87.3 fl (80-96); MEAN PLT VOLUME 9.7 fl (7.5-11.1); PLATELET COUNT 224 10^3/uL (134-434); RBC 4.16 M/mm3 (4.00-5.60); RDW 13.4 % (11.9-15.9)
[2023-06-17 15:32] LABS: ALBUMIN 3.1 g/dl (3.4-5.0); BLOOD UREA NITROGEN 16.9 mg/dL (7-18); CALCIUM 8.4 mg/dL (8.5-10.1)
[2023-06-17 15:35] LABS: CREATININE 1.6 mg/dL (0.55-1.3)
[2023-06-17 15:36] LABS: BILIRUBIN,TOTAL 0.8 mg/dL (0.2-1); TOT PROT 6.8 g/dl (6.4-8.2)
[2023-06-17] MEDS: MELATONIN 5 MG TABLETS PO SCH (22:05)
[2023-06-17] MEDS: hydrOXYzine PAMOATE 25 MG CAPSULE (FP) PO PRN (22:05)
[2023-06-17] MEDS: THIAMINE HCL 100 MG TABLET (FP) PO SCH (22:05)
[2023-06-18] MEDS ORDERED: INSULIN SLIDING SCALE (NOVOLOG) 1 VIAL SQ ONE (05:34)
[2023-06-18] MEDS: metFORMIN HCL 500 MG TABLET (FP) PO SCH ×2 (06:21→17:21)
[2023-06-18] MEDS: INSULIN SLIDING SCALE (NOVOLOG) 1 VIAL SQ SCH ×4 (06:22→21:15)
[2023-06-18] MEDS: APIXABAN 5 MG TABLET PO SCH ×2 (10:46→21:15)
[2023-06-18] MEDS: PRENATAL VITAMINS W/ FOLIC ACID TABLET (FP) PO SCH (10:46)
[2023-06-18] MEDS: THIAMINE HCL 100 MG TABLET (FP) PO SCH (21:15)
[2023-06-18] MEDS: MELATONIN 5 MG TABLETS PO SCH (21:15)
[2023-06-19] MEDS: metFORMIN HCL 500 MG TABLET (FP) PO SCH ×2 (06:04→17:12)
[2023-06-19] MEDS: INSULIN SLIDING SCALE (NOVOLOG) 1 VIAL SQ SCH ×4 (06:05→21:11)
[2023-06-19] MEDS ORDERED: INSULIN SLIDING SCALE (NOVOLOG) 1 VIAL SQ ONE (06:20)
[2023-06-19] MEDS: PRENATAL VITAMINS W/ FOLIC ACID TABLET (FP) PO SCH (10:16)
[2023-06-19] MEDS: APIXABAN 5 MG TABLET PO SCH ×2 (10:16→21:10)
[2023-06-19 13:43] VITALS: RESP 18
[2023-06-19] MEDS ORDERED: LISINOPRIL 10 MG TABLET PO ONE (14:06)
[2023-06-19] MEDS: hydrOXYzine PAMOATE 25 MG CAPSULE (FP) PO PRN (18:27)
[2023-06-19] MEDS: MELATONIN 5 MG TABLETS PO SCH (21:10)
[2023-06-19] MEDS: THIAMINE HCL 100 MG TABLET (FP) PO SCH (21:10)
[2023-06-20 06:59] VITALS: BP 155/93; PULSE 70; TEMP 97.9
[2023-06-20] MEDS: INSULIN SLIDING SCALE (NOVOLOG) 1 VIAL SQ SCH (07:35)
[2023-06-20] MEDS: metFORMIN HCL 500 MG TABLET (FP) PO SCH (07:35)
[2023-06-20] MEDS: PRENATAL VITAMINS W/ FOLIC ACID TABLET (FP) PO SCH (09:12)
[2023-06-20] MEDS: APIXABAN 5 MG TABLET PO SCH (09:12)
[2023-06-20] MEDS ORDERED: LISINOPRIL 10 MG TABLET PO SCH (10:00)
== END 2023-06-20 08:56 | disposition home or self-care (01) | DRG 774 ==
LOC: YASAS 21:52 → Y3N 23:22
PROVIDERS: ADMIT Allergy & Immunology; ATTEND Allergy & Immunology
PROC: HZ2ZZZZ Detoxification Services for Substance Abuse Treatment (ICD-10-PCS; principal; 2023-06-16)
DX: F10.20 Alcohol dependence, uncomplicated (principal); F14.20 Cocaine dependence, uncomplicated; F12.10 Cannabis abuse, uncomplicated; F17.210 Nicotine dependence, cigarettes, uncomplicated; I82.432 Acute embolism and thrombosis of left popliteal vein; I10 Essential (primary) hypertension; E11.9 Type 2 diabetes mellitus without complications; Z79.01 Long term (current) use of anticoagulants; E66.01 Morbid (severe) obesity due to excess calories; Z68.41 Body mass index [BMI] 40.0-44.9, adult
CPT/HCPCS: 36415; 80053; 82010; 82962; 85025; 85027; 85610; 85730; 86780; 87635; 93971-TC; 99283-25

== ENCOUNTER 2025-01-04 13:27 | Inpatient (IN) | payer OTHER ==
[2025-01-04 13:48] VITALS: BMI 31.4
[2025-01-04] MEDS ORDERED: BENZOCAINE/MENTHOL (CHLORASEPTIC ) LOZENGE MM PRN (14:29)
[2025-01-04] MEDS ORDERED: ACETAMINOPHEN 325 MG TABLET (FP) PO PRN (14:29)
[2025-01-04] MEDS ORDERED: NALOXONE (NARCAN) HCL 4 MG/0.1 ML SPRAY NS PRN (14:29)
[2025-01-04] MEDS ORDERED: IBUPROFEN 600 MG TABLET (FP) PO PRN (14:29)
[2025-01-04] MEDS ORDERED: LOPERAMIDE HCL 2 MG CAPSULE PO PRN (14:29)
[2025-01-04] MEDS ORDERED: BENZONATATE 200 MG CAPSULE PO PRN (14:29)
[2025-01-04] MEDS ORDERED: IBUPROFEN 400 MG TABLET (FP) PO PRN (14:29)
[2025-01-04] MEDS ORDERED: DOCUSATE SODIUM 100 MG CAPSULE (FP) PO PRN (14:29)
[2025-01-04] MEDS ORDERED: MAGNESIUM HYDROX 2400MG/30ML ORAL SUSPENSION 30 ML CUP PO PRN (14:29)
[2025-01-04] MEDS ORDERED: NICOTINE POLACRILEX 2 MG GUM BUC PRN (14:29)
[2025-01-04] MEDS ORDERED: MAG HYDROX/AL HYDROX/SIMETH 30 ML UNIT-DOSE CUP PO PRN (14:29)
[2025-01-04] MEDS ORDERED: POLYETHYLENE GLYCOL (HEALTHYLAX) 3350 17 GM PACKET PO PRN (14:29)
[2025-01-04] MEDS ORDERED: NICOTINE POLACRILEX 2 MG LOZENGE BC PRN (14:29)
[2025-01-04] MEDS ORDERED: guaiFENesin 600 MG TABLET.ER (FP) PO PRN (14:29)
[2025-01-04] MEDS ORDERED: INSULIN (NOVOLOG) ASPART 100 UNITS/ML 10ML VIAL ONE (16:29)
[2025-01-04] MEDS: INSULIN ASPART SLIDING SCALE (NOVOLOG) 1 VIAL SQ SCH (16:30)
[2025-01-04] MEDS ORDERED: TUBERCULIN PPD 5 TU/0.1ML VIAL ID ONE (17:39)
[2025-01-04] MEDS: GABAPENTIN 300 MG CAPSULE PO SCH (21:31)
[2025-01-04] MEDS: THIAMINE 100 MG TABLET PO SCH (21:31)
[2025-01-04] MEDS: ATORVASTATIN CA 40 MG TABLET (FP) PO SCH (21:31)
[2025-01-04] MEDS: MELATONIN 5 MG TABLETS PO SCH (21:32)
[2025-01-05] MEDS: glipiZIDE 5 MG TABLET (FP) PO SCH (06:27)
[2025-01-05 10:16] LABS: HEMATOCRIT 37.6 % (35.4-49); HEMOGLOBIN 12.7 GM/dL (11.7-16.9); MCH 29.5 pg (25.7-33.7); MCHC 33.8 g/dl (32.0-35.9); MEAN CELL VOLUME 87.4 fl (80-96); MEAN PLT VOLUME 9.1 fl (7.5-11.1); PLATELET COUNT 209 10^3/uL (134-434); RBC 4.31 M/mm3 (4.00-5.60); RDW 14.4 % (11.9-15.9); WHITE BLOOD COUNT 6.8 K/mm3 (4.0-10.0)
[2025-01-05] MEDS: PRENATAL VITAMINS W/ FOLIC ACID TABLET (FP) PO SCH (10:22)
[2025-01-05] MEDS: ASPIRIN 81 MG CHEWABLE TABLETS PO SCH (10:22)
[2025-01-05 10:36] LABS: URINE APPEARANCE CLEAR; URINE BILIRUBIN NEGATIVE (NEGATIVE); URINE COLOR YELLOW; URINE GLUCOSE (UA) 1+ (NEGATIVE); URINE KETONE NEGATIVE (NEGATIVE); URINE LEUK ESTERASE NEGATIVE (NEGATIVE); URINE NITRITE NEGATIVE (NEGATIVE); URINE PROTEIN NEGATIVE (NEGATIVE)
[2025-01-05 11:11] LABS: POTASSIUM 4.2 mmol/L (3.5-5.1)
[2025-01-05 11:21] LABS: ALBUMIN 3.5 g/dl (3.4-5.0); CALCIUM 9.2 mg/dL (8.5-10.1)
[2025-01-05 11:22] LABS: BLOOD UREA NITROGEN 15.2 mg/dL (7-18)
[2025-01-05 11:23] LABS: BILIRUBIN,TOTAL 1.5 mg/dL (0.2-1)
[2025-01-05 11:24] LABS: TOT PROT 7.4 g/dl (6.4-8.2)
[2025-01-05 11:25] LABS: CREATININE 1.6 mg/dL (0.55-1.3)
[2025-01-05] MEDS ORDERED: INSULIN (NOVOLOG) ASPART 100 UNITS/ML 10ML VIAL ONE (11:31)
[2025-01-05] MEDS: TOPIRAMATE 25 MG TABLET PO SCH (12:23)
[2025-01-05 13:49] LABS: SYPHILIS W/ RPR CONF NON-REACTIVE (NONREACTIVE)
[2025-01-05] MEDS: SUVOREXANT 5 MG TABLET PO PRN (22:01)
[2025-01-05] MEDS: MIRTAZAPINE 30 MG TABLET PO SCH (22:03)
[2025-01-06 06:50] VITALS: RESP 16; TEMP 97.9
[2025-01-06 09:10] VITALS: BP 138/87; PULSE 77
[2025-01-06] MEDS: NALOXONE (NYS OPIOID OVERDOSE PROGRAM) 4 MG/0.1 ML SPRAY NS SCH (12:52)
== END 2025-01-06 12:45 | disposition left against medical advice (07) | DRG 770 ==
LOC: YASAS 13:27 → Y3E 16:21
PROVIDERS: ADMIT Psychiatry & Neurology Pain Medicine; ATTEND Psychiatry & Neurology Pain Medicine
PROC: HZ42ZZZ Group Counseling for Substance Abuse Treatment, Cognitive-Behavioral (ICD-10-PCS; principal; 2025-01-04)
DX: F14.20 Cocaine dependence, uncomplicated (principal); F17.210 Nicotine dependence, cigarettes, uncomplicated; F19.282 Other psychoactive substance dependence with psychoactive substance-induced sleep disorder; F19.24 Other psychoactive substance dependence with psychoactive substance-induced mood disorder; I10 Essential (primary) hypertension; E11.52 Type 2 diabetes mellitus with diabetic peripheral angiopathy with gangrene; Z79.4 Long term (current) use of insulin; R26.89 Other abnormalities of gait and mobility; Z86.718 Personal history of other venous thrombosis and embolism; Z79.01 Long term (current) use of anticoagulants; Z99.89 Dependence on other enabling machines and devices; Z59.00 Homelessness unspecified
CPT/HCPCS: 36415; 80053; 80305; 80307; 81003; 82962; 85027; 86780; 86803; 87811; 93005; 93010